=== PATIENT | female | born 1990 | race Caucasian/White ===

== ENCOUNTER 2019-04-04 03:29 | Emergency (ER) | payer OTHER ==
[~2019-04-04] VITALS: Ht 162.6 cm; Wt 80.6 kg
[2019-04-04] MEDS ORDERED: HYDROCODONE/ACETAMINOPHEN 5/325MG TABLET PO ONE (05:15)
[2019-04-04] MEDS ORDERED: BACITRACIN ZINC OINT UDPKT TOP ONE (07:00)
[2019-04-04 07:10] VITALS: BP 114/84
== END 2019-04-04 07:11 | disposition home or self-care (01) ==
LOC: ER 03:29
DX: S61.111A Laceration without foreign body of right thumb with damage to nail, initial encounter (principal); W22.8XXA Striking against or struck by other objects, initial encounter; Y93.89 Activity, other specified; Y92.89 Other specified places as the place of occurrence of the external cause; Y99.8 Other external cause status
CPT/HCPCS: 29130; 73140; 99283